=== PATIENT | female | born 1960 | race Two or more races ===

== ENCOUNTER 2018-08-28 10:11 | Emergency (ER) | payer OTHER ==
--- NOTE | 2018-08-28 10:53 | EDPHY ---
General Time Seen by Provider: 08/28/18 10:44 Narrative: CHIEF COMPLAINT: Flank pain HISTORY OF PRESENT ILLNESS: Patient presents by private vehicle with complaints of left flank pain. This started history day at 10:00 a.m. Suddenly. It has been constant duration. Rated as moderate to severe. No position of comfort. Nausea but no vomiting. She has no vaginal bleeding, discharge or pain. She has no dysuria. She does have urinary frequency. No fever. No right-sided abdominal pain. Pain does radiate down to the left side of the abdomen and groin at times. She has no trauma or injury. No previous abdominal surgeries. No other associated complaints or modifying factors. HPI obtained using the hospital's certified Gambian sign language instructor at bedside in patient's room. REVIEW OF SYSTEMS: 10 systems were reviewed and negative with the exception of the elements mentioned in the history of present illness. PCP: [facility] SPECIALISTS: None PAST MEDICAL HISTORY: Uncomplicated PAST SURGICAL HISTORY: No abdominal surgical history SOCIAL HISTORY: Nonsmoker. Lives independently with her child. FAMILY HISTORY: Noncontributory EXAMINATION: General Appearance: Alert, no distress. Well appearing. Conversing in complete sentences Head: normocephalic, atraumatic Eyes: Pupils equal and round, no conjunctival pallor or injection ENT, Mouth: Mucous membranes moist Neck: Normal inspection, supple, non-tender Respiratory: Lungs are clear to auscultation Cardiovascular: Regular rate and rhythm Gastrointestinal: Abdomen is soft and nondistended. Bowel sounds present all 4 quadrants. No tympany or rigidity. No guarding. Left CVA tenderness. Left- sided abdominal tenderness. Back: non-tender, no bony abnormalities Neurological: A&O, nonfocal, normal gait Skin: Warm and dry, no rash Extremities: Nontender, no pedal edema Psychiatric: Mood and affect normal DIFFERENTIAL DIAGNOSES: Including but not limited to renal colic, ureteral colic, pyelonephritis, hydronephrosis, colitis, diverticulitis MDM: 10:45 a.m. Acute left flank pain radiating to the left groin abdomen. History examination suggest renal colic. She has no right-sided tenderness. No guarding. No tympany rigidity. Vital signs are within normal limits. No SIRS criteria. No vomiting but she is nauseated. She has no position of comfort. She does have frequent urination. I have ordered laboratory studies, IV will be placed. I have ordered IV fluid and pain medications. Urinalysis will be needed. I have also ordered CT scan abdomen pelvis to evaluate for stone. She is in no acute distress. 11:30 a.m. CBC unremarkable. Urinalysis pending. Notified by radiologist Dr. Allen. CT scan abdomen pelvis reveals pelvic abdomen involving the the anterior uterus or left ovary. Recommends pelvic ultrasound. I have re-evaluated the patient and informed her of this with the business analyst sales operations at bedside. She is feeling better. 12:57 p.m. Notified by radiologist Dr. Avilez. We discussed the ultrasound findings of the pelvis. Comparison made to 5 years ago. 1:10 p.m. Patient re-evaluated with railroad design consultant at bedside. She reports that she has not had any follow up on the initial cyst. She states she is not able to do so. Her pain is still rated at 3/10. Both she and her family are concerned about going home. I will discuss with motorized squad captain 1:20 p.m. Case discussed with Ob physician Dr. Zuleta. She will provide consultation in the emergency department. 2:40 p.m. Patient has been evaluated by Dr. Zuleta. She will discuss options with help of the Gambian sign language instructor. 3:[address] Zuleta has evaluated the patient. She at 1st plan for surgical intervention, but does not feel this is emergent. Due to her use of aspirin she feels she will be best suited in several days after discontinuing the aspirin. She has ordered a CA-wanting high. She will follow up on this in her office. She plans for surgical intervention later this week. She has discussed multiple options with the patient using the Gambian sign language instructor at bedside, including admission versus discharge home. The patient's pain is tolerable and she would like to go home. She will provided short course of pain medication. We discussed strict ED precautions for worsening pain, vomiting, vaginal pain or pelvic pain. I have answered all her questions. She says that she has had all of her questions as by Dr. Zuleta and would like to go home. Please see Dr. Zuleta note for further details. Discharged home stable condition SUPERVISION: Patient was independently examined, but I discussed the case with my secondary supervising physician Dr. Luther CONSULTATION: OB Gyne, Dr. Elaine Zuleta - History Smoking Status: Never smoked - Objective Vital Signs: Initial Vital Signs Temperature (C) 97.9 F 08/28/18 10:12 Heart Rate 59 L 08/28/18 10:12 Respiratory Rate 18 08/28/18 10:12 Blood Pressure 156/60 H 08/28/18 10:12 O2 Sat (%) 96 08/28/18 10:12 O2 Delivery Mode Room Air O2 (L/minute) 2 Allergies/Adverse Reactions: No Known Allergies Allergy (Unverified 11/28/15 19:54) Home Medications: Medication Instructions Recorded oxyCODONE IR [Oxycodone Ir (*)] 5 - 10 mg PO Q6 PRN #15 tab 08/28/18 Laboratory Results: Laboratory Results 08/28/18 10:50 08/28/18 10:50 Medications Given: Discontinued Medications Sodium Chloride (Ns) 1,000 mls @ 0 mls/hr IV EDNOW ONE; Wide Open PRN Reason: Protocol Stop: 08/28/18 10:44 Last Admin: 08/28/18 10:57 Dose: 1,000 mls Morphine Sulfate (Morphine) 4 mg IVP EDNOW ONE Stop: 08/28/18 10:44 Last Admin: 08/28/18 10:56 Dose: 4 mg Morphine Sulfate (Morphine) 4 mg IVP EDNOW ONE Stop: 08/28/18 14:08 Last Admin: 08/28/18 14:12 Dose: 4 mg Ondansetron HCl (Zofran) 4 mg IVP EDNOW ONE Stop: 08/28/18 10:44 Last Admin: 08/28/18 10:57 Dose: 4 mg Departure - Departure Disposition: Home, Routine, Self-Care Clinical Impression: Abdominal pain, Pelvic pain in female, Cyst of ovary, left Condition: Good Instructions: Ovarian Cyst (ED) Additional Instructions: 1. Pain medication as prescribed as needed 2. Avoid ibuprofen, aspirin or Aleve. you may take Tylenol 500-650 mg every 6- 8 hours as needed. 3. Follow up with Dr. Zuleta as discussed. You will need to call her office for an appointment 4. ED precautions for worsening pain, fever, intolerable pain 1. Medicamento para el dolor charity se le receto charity sea necesario. 2. Evite ibuprofen, aspirina o Alive. Usted puede marco a Tylenol 500-650 mg cada 6-8 horas charity sea necesario. 3. Seguimiento con la Dra. Zuleta charity se discutio. Usted necesitara llamar a rodriguez oficina para justine shawn. 4. Precauciones del departamento de emergencias si el dolor empeora, fiebre, intolerancia al dolor. Referrals: Elaine Zuleta MD [Medical Doctor] - As per Instructions Physician,Emergency Dept, [Medical Doctor] - As per Instructions Stand Alone Forms: Work Excuse Prescriptions: oxyCODONE IR [Oxycodone Ir (*)] 5 - 10 mg PO Q6 PRN #15 tab PRN Reason: Pain Print Language: Gambian
[2018-08-28] MEDS: ONDANSETRON 4 MG/2 ML VIAL IVP ONE (10:57)
[2018-08-28] MEDS: NS 1,000 ML IV ONE (10:57)
[2018-08-28 11:20] LABS: PLATELET COUNT 251 10^3/uL (150-400)
[2018-08-28] MEDS ORDERED: oxyCODONE IR 5 MG TAB PO PRN (15:17)
--- NOTE | 2018-08-28 15:29 | PDCONSULT ---
Heavy Equipment Field Mechanic Note: Visual Display Associate Consult from KRISTY Benitez, in ED. Yrn Hendricksjapanese interpreter in attendance. 58 came to the ED with LLQ pain which started yesterday, and became more severe today. Pain is in her low back and radiates into her low abdomen. NO change in bowel or bladder habits. No fevers. No vomiting, no diarrhea. Sexually active, monogamous with boyfriend of 2 years. NO new partners. Took 2 ASA yesterday and again this morning to try to relieve the pain. Menopausal 6 years ago. 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 No eval for that. Had a pelvic ultrasound here at [facility] 2007, 4 cm simple L ov cyst seen ROS: 10 points, all neg except as above. 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 Temp Pulse Resp BP Pulse Ox 36.6 C 58 L 18 121/66 H 98 08/28/18 10:12 08/28/18 14:17 08/28/18 14:17 08/28/18 14:17 08/28/18 14:17 WBC 7.28 10^3/uL (3.80-9.50) 08/28/18 10:50 RBC 5.27 10^6/uL (4.18-5.33) 08/28/18 10:50 Hgb 15.7 g/dL (12.6-16.3) 08/28/18 10:50 Hct 45.9 % (38.0-47.0) 08/28/18 10:50 MCV 87.1 fL (81.5-99.8) 08/28/18 10:50 MCH 29.8 pg (27.9-34.1) 08/28/18 10:50 MCHC 34.2 g/dL (32.4-36.7) 08/28/18 10:50 RDW 12.8 % (11.5-15.2) 08/28/18 10:50 Plt Count 251 10^3/uL (150-400) 08/28/18 10:50 MPV 11.4 fL (8.7-11.7) 08/28/18 10:50 Neut % (Auto) 74.0 % (39.3-74.2) 08/28/18 10:50 Lymph % (Auto) 19.9 % (15.0-45.0) 08/28/18 10:50 [place] % (Auto) 4.8 % (4.5-13.0) 08/28/18 10:50 Eos % (Auto) 0.3 % (0.6-7.6) L 08/28/18 10:50 Baso % (Auto) 0.7 % (0.3-1.7) 08/28/18 10:50 Nucleat RBC Rel Count 0.0 % (0.0-0.2) 08/28/18 10:50 Absolute Neuts (auto) 5.39 10^3/uL (1.70-6.50) 08/28/18 10:50 Absolute Lymphs (auto) 1.45 10^3/uL (1.00-3.00) 08/28/18 10:50 Absolute Monos (auto) 0.35 10^3/uL (0.30-0.80) 08/28/18 10:50 Absolute Eos (auto) 0.02 10^3/uL (0.03-0.40) L 08/28/18 10:50 Absolute Basos (auto) 0.05 10^3/uL (0.02-0.10) 08/28/18 10:50 Absolute Nucleated RBC 0.00 10^3/uL (0-0.01) 08/28/18 10:50 Immature Gran % 0.3 % (0.0-1.1) 08/28/18 10:50 Immature Gran # 0.02 10^3/uL (0.00-0.10) 08/28/18 10:50 Sodium 139 mEq/L (135-145) 08/28/18 10:50 Potassium 4.0 mEq/L (3.3-5.0) 08/28/18 10:50 Chloride 103 mEq/L (97-110) 08/28/18 10:50 Carbon Dioxide 26 mEq/l (22-31) 08/28/18 10:50 Anion Gap 10 mEq/L (6-14) 08/28/18 10:50 BUN 12 mg/dL (7-23) 08/28/18 10:50 Creatinine 0.6 mg/dL (0.6-1.0) 08/28/18 10:50 Estimated GFR > 60 08/28/18 10:50 Glucose 95 mg/dL (70-100) 08/28/18 10:50 Calcium 9.8 mg/dL (8.5-10.4) 08/28/18 10:50 Total Bilirubin 0.6 mg/dL (0.1-1.4) 08/28/18 10:50 Conjugated Bilirubin 0.1 mg/dL (0.0-0.5) 08/28/18 10:50 Unconjugated Bilirubin 0.5 mg/dL (0.0-1.1) 08/28/18 10:50 AST 25 IU/L (14-46) 08/28/18 10:50 ALT 31 IU/L (9-52) 08/28/18 10:50 Alkaline Phosphatase 135 IU/L (38-126) H 08/28/18 10:50 Total Protein 7.8 g/dL (6.3-8.2) 08/28/18 10:50 Albumin 4.4 g/dL (3.5-5.0) 08/28/18 10:50 Lipase 166 IU/L (23-300) 08/28/18 10:50 Urine Color YELLOW 08/28/18 10:50 Urine Appearance CLEAR 08/28/18 10:50 Urine pH 5.0 (5.0-7.5) 08/28/18 10:50 Ur Specific [place] 1.018 (1.002-1.030) 08/28/18 10:50 Urine Protein NEGATIVE (NEGATIVE) 08/28/18 10:50 Urine Ketones NEGATIVE (NEGATIVE) 08/28/18 10:50 Urine Blood 1+ (NEGATIVE) H 08/28/18 10:50 Urine Nitrate NEGATIVE (NEGATIVE) 08/28/18 10:50 Urine Bilirubin NEGATIVE (NEGATIVE) 08/28/18 10:50 Urine Urobilinogen NEGATIVE EU (0.2-1.0) 08/28/18 10:50 Ur Leukocyte Esterase NEGATIVE (NEGATIVE) 08/28/18 10:50 Urine RBC 3-5 /hpf (0-3) H 08/28/18 10:50 Urine WBC 1-3 /hpf (0-3) 08/28/18 10:50 Ur Epithelial Cells NONE SEEN /lpf (NONE-1+) 08/28/18 10:50 Urine Mucus TRACE /lpf (NONE-1+) 08/28/18 10:50 Urine Glucose NEGATIVE (NEGATIVE) 08/28/18 10:50 Did just received morphine through IV for pain control. Gen - pleasant female, NAD, with 2 daughters with her. neuroposych - AO x 3 HEENT - grossly wnl, PERRLA, EOMI skin - warm, dry CV - RRR chest - CTAB abd - soft, mild tenderness in LLQ, no rebound, no guarding back - no CVAT ext - no edema, normal strength bimanual - no adnexal masses on R, mildly tender mass anterior to uterus on R. Uterus mobile. No cervical motion tenderness. US and CT scans reviewed: from 2007 - L ov 4 cm simple cyst. Endometrial stripe 1.6cm from today - L ovarian or paraovarian cyst 9 cm, appears simple though may have "some debris" No free fluid. 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 Options discussed: 1) Observe and repeat US in 6-8 weeks to check for spontaneous resolution while managing pain 2) Surgery today or delayed B/R/A of options discussed. Mutually agreed to draw Ca125 - ovarian cancer tumor marker, and pt to follow up with me in office in one week, at 3:15pm. Will repeat ultrasound then and Ca125 results will be back. Ovarian torsion precautions reviewed. No NSAIDs or herbal products until then. If normal Ca125 - will plan surgical removal. If Ca125 elevated, will need referral to gas meter repair supervisor onc. Rx for oxycodone and Tylenol prn for pain. Elaine Zuleta MD, [facility]
[2018-08-28 16:06] VITALS: BP 120/75
== END 2018-08-28 16:05 | disposition home or self-care (01) ==
DX: N83.292 Other ovarian cyst, left side (principal); E86.9 Volume depletion, unspecified
CPT/HCPCS: 86304-90; 96374; J2270; J2405

== ENCOUNTER 2018-09-01 10:14 | Emergency (ER) | payer OTHER ==
[2018-09-01] MEDS ORDERED: HYDROmorphONE/DILAUDID 2 MG/ML INJ IVP ONE (11:26)
[2018-09-01] MEDS ORDERED: NS 500 ML IV ONE (11:26)
[2018-09-01] MEDS ORDERED: KETOROLAC 30 MG/1 ML SDV IVP ONE (11:26)
--- NOTE | 2018-09-01 11:37 | EDPHY ---
H & P Time Seen by Provider: 09/01/18 11:01 HPI/ROS: HPI Left-sided abdominal pain. History of ovarian cyst. 58-year-old female by private vehicle with her son. This patient was seen in our emergency department on August 28 with the same complaint. She was diagnosed with a 9 cm left-sided ovarian cyst thought to be a simple cyst. OBGYN, Dr. Elaine Zuleta, consulted on the patient. The patient has a follow-up appointment with Dr. Zuleta on Friday at 3:15 p.m. this week. She presents to the emergency department complaining of uncontrolled pain to her left abdomen and left flank area. She was prescribed oxycodone. She states however that she has only been taking 1 pill every 6-8 hours. She has not had a fever. She denies vaginal bleeding. No urinary complaints. ROS: Constitutional: No fever, no chills. No weakness. Eyes: No discharge. No changes in vision. ENT: No sore throat. No nasal congestion or rhinorrhea. Respiratory: No cough. No shortness of breath. Cardiac: No chest pain, no palpitations. Gastrointestinal: As above, no vomiting, no diarrhea. Genitourinary: No hematuria. No dysuria or increased frequency with urination. Musculoskeletal: As above. No neck pain. No myalgias or arthralgias. Skin: No rashes. Neurological: No headache. No focal weakness or altered sensation. Past medical history: She denies any significant past medical history other than noted above. Social history: Nonsmoker. Here with her son. No alcohol. Physical Exam: General Appearance: Alert, she appears uncomfortable but not in distress. This patient is responding to questions appropriately and in full sentences. This patient appears well-hydrated and well-nourished. Eyes: Pupils equal and round no pallor or injection. No lid edema, erythema or injection. Respiratory: There are no retractions, lungs are clear to auscultation with good air movement bilaterally. Cardiovascular: Regular rate and rhythm. No murmur. Gastrointestinal: Abdomen is soft with vague left-sided lower abdominal pain, no significant left CVA tenderness on palpation, no masses, bowel sounds normal. No focal tenderness at McBurney's point. No Maldonado sign. Neurological: Motor sensory function is grossly intact. Cranial nerves are normal. Gait is normal. Skin: Warm and dry, no rashes. Musculoskeletal: Neck is supple and nontender. Extremities are symmetrical. All joints range without pain or impingement. Psychiatric: No agitation. No depression. Database: EKG: Imaging: Pelvic ultrasound: Essentially unchanged from the prior study. No evidence of free fluid or other acute findings. Results were discussed with staff radiologist Dr. Jefe Allen. Procedures: Emergency department course: Triage vital signs reviewed and are normal. IV was placed. She was placed on a monitor. She was started on IV normal saline with 500 cc to be given over the next hour. She has a normal creatinine from August 28. No contraindications to NSAIDs. She will be given 30 mg of IV Toradol and 0.5 mg of IV hydromorphone. Pelvic ultrasound will be repeated to evaluate for any free fluid or other changes. 1:45 p.m., the patient was re-evaluated. She is resting comfortably at this time. Her pain is well controlled. Results of her emergency department workup discussed with her and her relative who is in the room and translates well. She feels comfortable going home and following up with her OBGYN on Friday as scheduled and noted above. I discussed narcotic pain medication dosing again with her. She understands the importance of her follow-up. Return to emergency department precautions reviewed with her. All of her questions were answered. She was discharged in good condition with her family member. Differential Diagnosis: The differential diagnosis on this patient includes but is not limited to left- sided ovarian cyst, uncontrolled pain. Ectopic , ureterolithiasis, pyelonephritis, diverticular unlikely. This represents a partial list of diagnoses considered. These considerations are based on history, physical exam , past history, reassessment and diagnostic testing. Smoking Status: Never smoked Constitutional: Initial Vital Signs Temperature (C) 36.7 C 09/01/18 10:26 Heart Rate 67 09/01/18 10:26 Respiratory Rate 17 09/01/18 10:26 Blood Pressure 122/93 H 09/01/18 10:26 O2 Sat (%) 98 09/01/18 10:26 O2 Delivery Mode Room Air Allergies/Adverse Reactions: No Known Allergies Allergy (Verified 09/01/18 10:26) Home Medications: Medication Instructions Recorded oxyCODONE IR [Oxycodone Ir (*)] 5 - 10 mg PO Q6 PRN #15 tab 08/28/18 Medical Decision Making - Diagnostics Imaging Results: Imaging Impressions Pelvic/Renal Ultrasound 09/01/18 11:27 Impression: 1. Large simple cystic structure along the anterior aspect of the uterus similar to the recent exam performed 4 days ago but has increased more remote study from April,. This could represent cystadenoma or possibly mesenteric cyst. The relatively slow growth since 2007 suggests that this has more of a benign etiology. 2. Incidental small uterine fibroids. Findings discussed with Adrianna Sprague MD at 13:00 hour, 09/01/2018. - Data Points Laboratory Results: Laboratory Results 09/01/18 11:30 09/01/18 11:30 09/01/18 09/01/18 09/01/18 12:55 11:30 11:30 WBC 8.15 10^3/uL 10^3/uL (3.80-9.50) RBC 5.29 10^6/uL 10^6/uL (4.18-5.33) Hgb 15.7 g/dL g/dL (12.6-16.3) Hct 44.9 % % (38.0-47.0) MCV 84.9 fL fL (81.5-99.8) MCH 29.7 pg pg (27.9-34.1) MCHC 35.0 g/dL g/dL (32.4-36.7) RDW 12.7 % % (11.5-15.2) Plt Count 250 10^3/uL 10^3/uL (150-400) MPV 11.2 fL fL (8.7-11.7) Neut % (Auto) 69.0 % % (39.3-74.2) Lymph % (Auto) 21.1 % % (15.0-45.0) [place] % (Auto) 7.7 % % (4.5-13.0) Eos % (Auto) 1.3 % % (0.6-7.6) Baso % (Auto) 0.7 % % (0.3-1.7) Nucleat RBC Rel Count 0.0 % % (0.0-0.2) Absolute Neuts (auto) 5.61 10^3/uL 10^3/uL (1.70-6.50) Absolute Lymphs (auto) 1.72 10^3/uL 10^3/uL (1.00-3.00) Absolute Monos (auto) 0.63 10^3/uL 10^3/uL (0.30-0.80) Absolute Eos (auto) 0.11 10^3/uL 10^3/uL (0.03-0.40) Absolute Basos (auto) 0.06 10^3/uL 10^3/uL (0.02-0.10) Absolute Nucleated RBC 0.00 10^3/uL 10^3/uL (0-0.01) Immature Gran % 0.2 % % (0.0-1.1) Immature Gran # 0.02 10^3/uL 10^3/uL (0.00-0.10) Sodium 139 mEq/L mEq/L (135-145) Potassium 4.1 mEq/L mEq/L (3.3-5.0) Chloride 105 mEq/L mEq/L (97-110) Carbon Dioxide 23 mEq/l mEq/l (22-31) Anion Gap 11 mEq/L mEq/L (6-14) BUN 9 mg/dL mg/dL (7-23) Creatinine 0.7 mg/dL mg/dL (0.6-1.0) Estimated GFR > 60 Glucose 94 mg/dL mg/dL (70-100) Calcium 10.0 mg/dL mg/dL (8.5-10.4) Urine Color PALE YELLOW Urine Appearance CLEAR Urine pH 8.0 H (5.0-7.5) Ur Specific [place] 1.005 (1.002-1.030) Urine Protein NEGATIVE (NEGATIVE) Urine Ketones NEGATIVE (NEGATIVE) Urine Blood NEGATIVE (NEGATIVE) Urine Nitrate NEGATIVE (NEGATIVE) Urine Bilirubin NEGATIVE (NEGATIVE) Urine Urobilinogen NEGATIVE EU EU (0.2-1.0) Ur Leukocyte Esterase NEGATIVE (NEGATIVE) Urine RBC NONE SEEN /hpf /hpf (0-3) Urine WBC 1-3 /hpf /hpf (0-3) Ur Epithelial Cells TRACE /lpf /lpf (NONE-1+) Urine Mucus TRACE /lpf /lpf (NONE-1+) Urine Glucose NEGATIVE (NEGATIVE) Medications Given: Discontinued Medications Hydromorphone HCl (Dilaudid) 0.5 mg IVP EDNOW ONE Stop: 09/01/18 11:27 Last Admin: 09/01/18 11:35 Dose: 0.5 mg Sodium Chloride (Ns) 500 mls @ 0 mls/hr IV EDNOW ONE; Wide Open PRN Reason: Protocol Stop: 09/01/18 11:27 Last Admin: 09/01/18 11:35 Dose: 500 mls Ketorolac Tromethamine (Toradol) 30 mg IVP EDNOW ONE Stop: 09/01/18 11:27 Last Admin: 09/01/18 11:36 Dose: 30 mg Departure - Departure Disposition: Home, Routine, Self-Care Clinical Impression: Ovarian cyst Condition: Good Instructions: Ovarian Cyst (ED), Abdominal Pain (ED) Additional Instructions: Read and follow provided instructions. Follow-up with your OBGYN as scheduled this Friday at 3:15 p.m.. Take medication as prescribed for pain. Narcotic pain medication pills: You can take 1-2 pills every 4-6 hours as needed for pain. Do not drive while taking this medication. You can start taking ibuprofen tomorrow: Ibuprofen dosin mg every 6 hours with meals for the next 3 days only. Take only as needed for pain. Return to the emergency department for worsening pain, fever or other serious concerns. Referrals: Elaine Zuleta MD [Medical Doctor] - As per Instructions
[2018-09-01 11:40] LABS: PLATELET COUNT 250 10^3/uL (150-400)
[2018-09-01 14:03] VITALS: BP 147/91
== END 2018-09-01 14:08 | disposition home or self-care (01) ==
DX: N83.202 Unspecified ovarian cyst, left side (principal); D25.9 Leiomyoma of uterus, unspecified; E86.9 Volume depletion, unspecified
CPT/HCPCS: 96374; J1170; J1885

== ENCOUNTER 2018-11-18 05:28 | Day surgery (SDC) | payer OTHER ==
--- NOTE | 2018-11-16 14:30 | PDGENHP ---
History and Physical - Chief Complaint persistent symptomatic large ovarian cyst. - History of Present Illness Pt seen in ED end of August with pelvic pain, and found to have 9 cm simple cyst ant to uterus, presumed to be ovarian in origin. Symptomatic still with regards to urinary frequency and pelvic pressure, but no longer has pain. Not currently sexually active - no current partner. Broke up with 2 yr boyfriend in the past 2 months. Shani Sparrow, production supervisor off shift in attendance. 58 , NO change in bowel or bladder habits. No fevers. No vomiting, no diarrhea. Menopausal 6 years ago. 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 No eval for that. Had a pelvic ultrasound here at [facility] 2007, 4 cm simple L ov cyst seen ROS: 10 points, all neg except as above. 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 No cervical motion tenderness. US and CT scans reviewed: from 2007 - L ov 4 cm simple cyst. Endometrial stripe 1.6cm from ED visit 08/2018- L ovarian or paraovarian cyst 9 cm, appears simple though may have "some debris" No free fluid. 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 Written informed consent obtained with district traffic chief. Rx for #20 of 5mg oxycodone given. Elaine Zuleta MD, FACOG [facility] History Information - Allergies/Home Medication List Allergies/Adverse Reactions: No Known Allergies Allergy (Verified 11/06/18 16:13) Home Medications: Multivitamin 11/06/18 [Last Taken Unknown] oxyCODONE IR [Oxycodone Ir (*)] 11/06/18 [Last Taken Unknown] I have personally reviewed and updated: family history, medical history, social history, surgical history - Social History Smoking Status: Former smoker Review of Systems Review of Systems: ROS: 10pt was reviewed & negative except for what was stated in HPI & below Physical Exam Physical Exam:
[2018-11-18] MEDS ORDERED: LR 1,000 ML IV ONE (05:45)
[2018-11-18] MEDS ORDERED: LIDOCAINE 1% 2 ML INJ ID PRN (05:45)
[2018-11-18] MEDS ORDERED: BUPIVACAINE 0.25% 30 ML SDV ONE ×2 (06:56→06:57)
[2018-11-18] MEDS ORDERED: SILVER NITRATE APPLICATOR 1 APPL TP ONE (06:56)
[2018-11-18] MEDS ORDERED: EPINEPHrine 1 MG/ML INJ ONE (06:57)
--- NOTE | 2018-11-18 07:04 | PDANEPAE ---
ANE Past Medical History - Cardiovascular History Hx Hypertension: No Hx Arrhythmias: No Hx Chest Pain: No Hx Coronary Artery / Peripheral Vascular Disease: No Hx CHF / Valvular Disease: No Hx Palpitations: No - Pulmonary History Hx COPD: No Hx Asthma/Reactive Airway Disease: No Hx Recent Upper Respiratory Infection: No Hx Oxygen in Use at Home: No Hx Sleep Apnea: No Sleep Apnea Screening Result - Last Documented: Negative Pulmonary History Comment: bronchitis and pneumonia - Neurologic History Hx Cerebrovascular Accident: No Hx Seizures: No Hx Dementia: No - Endocrine History Hx Diabetes: No - Renal History Hx Renal Disorders: No - Liver History Hx Hepatic Disorders: No - Neurological & Psychiatric Hx Hx Neurological and Psychiatric Disorders: No - Cancer History Hx Cancer: No - Congenital Disorder History Hx Congenital Disorders: No - GI History Hx Gastrointestinal Disorders: No - Other Health History Other Health History: dentures upper and lower - Chronic Pain History Chronic Pain: No - Surgical History Prior Surgeries: 03/20 scope ANE Review of Systems Review of Systems: - Exercise capacity METS (RN): 4 METS ANE Patient History - Allergies Allergies/Adverse Reactions: No Known Allergies Allergy (Verified 11/06/18 16:13) - Home Medications Home Medications: Multivitamin 11/06/18 [Last Taken 10/29/18] oxyCODONE IR [Oxycodone Ir (*)] 11/06/18 [Last Taken 10/18/18] - NPO status NPO Since - Liquids (Date): 11/17/18 NPO Since - Liquids (Time): 20:00 NPO Since - Solids (Date): 11/17/18 NPO Since - Solids (Time): 20:00 - Smoking Hx Smoking Status: Former smoker - Family Anes Hx Family Hx Anesthesia Complications: none ANE Labs/Vital Signs - Vital Signs Blood Pressure: 120/80 Heart Rate: 52 Respiratory Rate: 18 O2 Sat (%): 95 Height: 157.48 cm Weight: 65.771 kg ANE Physical Exam - Airway Mallampati Score: Class 2 - ASA Status ASA Status: II ANE Anesthesia Plan Anesthesia Plan: general endotracheal anesthesia
[2018-11-18] MEDS ORDERED: MIDAZOLAM 2 MG/2 ML VIAL ONE (07:07)
[2018-11-18] MEDS ORDERED: PROPOFOL 200 MG/20 ML VIAL ONE (07:10)
[2018-11-18] MEDS ORDERED: ONDANSETRON 4 MG/2 ML VIAL ONE (07:10)
[2018-11-18] MEDS ORDERED: ROCURONIUM 50 MG/5 ML VIAL ONE (07:10)
[2018-11-18] MEDS ORDERED: fentaNYL 100 MCG/2 ML INJ ONE (07:10)
[2018-11-18] MEDS ORDERED: METOCLOPRAMIDE 10 MG/2 ML VIAL ONE (07:10)
--- NOTE | 2018-11-18 07:17 | PDHPUP ---
History & Physical Update H&P update statement: This history and physical update is based on an assessment of the patient which was completed after admission or registration (within 24 hours), but prior to the surgery/procedure. H&P update: H&P reviewed & patient examined, no change in patient's condition since H&P completed (embedded developer present)
[2018-11-18] MEDS ORDERED: PHENYLEPHRINE HCL 100 MCG/ML SYR ONE (07:42)
[2018-11-18] MEDS ORDERED: SUGAMMADEX SODIUM 200 MG/2 ML VIAL IVP ONE (08:31)
[2018-11-18] MEDS ORDERED: PROMETHAZINE HCL 25 MG/ML INJ IVP PRN (08:52)
[2018-11-18] MEDS ORDERED: MEPERIDINE 25 MG/0.5 ML AMP IVP PRN (08:52)
[2018-11-18] MEDS ORDERED: NALOXONE HCL 0.4 MG/ML INJ IVP PRN (08:52)
[2018-11-18] MEDS ORDERED: LR 500 ML IV PRN (08:52)
[2018-11-18] MEDS ORDERED: fentaNYL 100 MCG/2 ML INJ IVP PRN (08:52)
[2018-11-18] MEDS ORDERED: HYDROCODONE/APAP 5/325 TAB PO PRN (08:52)
--- NOTE | 2018-11-18 08:54 | POSTANESTH ---
Post Anesthetic Evaluation Cardiovascular Status: Normal, Stable Respiratory Status: Normal, Stable Level of Consciousness/Mental Status: Can Participate in Eval Pain Control: Adequate, Prn Tx Ordered Nausea/Vomiting Control: Adequate, Prn Tx Ordered Complications Possibly Related to Anesthesia: None Noted
--- NOTE | 2018-11-18 09:00 | POSTOPPROG ---
Post Op Note Date of Operation: 11/18/18 (dictated [id number]) Surgeon: Elaine Zuleta Shank Cementer Hand: Rubio Myers Anesthesiologist: Clinton Ponce Anesthesia: GET(General Endotracheal) Pre-op Diagnosis: left ovarian cyst, desired onco-reduction Post-op Diagnosis: same Indication: 58 year old with a persistent large simple left ovarian cyst, symptomatic Procedure: laparoscopic left ovarian cystectomy and bilateral salpingectomy Findings: normal appearing uterus and ovaries bilaterally, large left simple ov cys Inf/Abcess present in the surg proc area at time of surgery?: No EBL: Minimal Total fluids administered: 900 Complications: none Specimen(s): left adnexal cyst and tube, right tube in 2 segments (hx of prior tubal ligation ).
[2018-11-18 10:07] VITALS: BP 112/75
--- NOTE | 2018-11-18 10:51 | GOP ---
DATE OF OPERATION: 11/18/2018 SURGEON: Elaine Zuleta MD GLUE DRIER OPERATOR: Rubio Myers MD ANESTHESIA: General endotracheal. ANESTHESIOLOGIST: Clinton Ponce MD PREOPERATIVE DIAGNOSIS: Left adnexal cyst and desired onco reduction. POSTOPERATIVE DIAGNOSIS: Left adnexal cyst and desired onco reduction. PROCEDURE PERFORMED: FINDINGS: Normal-appearing uterus and ovaries bilaterally. Large left simple adnexal cyst directly adjacent to the ovary. Unclear if it is truly ovarian in origin. Smooth liver edge and normal-appearing appendix SPECIMENS: Left adnexal cyst and tube and then right tube in 2 segments as the patient has a history of a prior tubal ligation. ESTIMATED BLOOD LOSS: 20 mL. INDICATIONS: 58-year-old with a persistent large simple left adnexal cyst causing symptoms initially 2 months ago of pain and currently of urinary pressure and frequency. The cyst was first diagnosed 09/2018. It was persistent. An ultrasound done in the office at the preoperative visit showed a persistent simple 7.5 mm ovarian cyst. CA-125 within the past 2 months or so was less than 5. DESCRIPTION OF PROCEDURE: In the preoperative area with the assistance of a real estate coordinator, written informed consent was reviewed with the patient and all questions were again answered. Written informed consent was initially obtained in the office, at the pre-operative visit, 2 days ago, witih the assistance of real estate coordinator Shani Sparrow. The patient was taken the operating room and placed in the dorsal supine position. When general anesthesia was deemed adequate, she was placed in a modified dorsal lithotomy position using the Yellofin stirrups. Her abdomen and vagina were sterilely prepared and draped in the standard fashion. A speculum was inserted in the vagina. A tenaculum was placed on the anterior lip of the cervix. An acorn cannula was inserted in the cervix and affixed to the tenaculum. The speculum was removed. Gloves were changed and attention was turned to the abdomen. The legs were lowered. 0.25% Marcaine with epinephrine was infiltrated prior to making each incision for the trocar sites. A small incision was made beneath the umbilicus over the area of the previous incision. This was taken down sharply to the fascia. The abdomen was elevated and a 5 mm Visiport trocar was inserted under direct visualization. The patient was placed in Trendelenburg. Right and left lower quadrant 5 mm ports were then placed under direct visualization in a similar fashion. Graspers were used to elevate the ovary and the cyst with the above findings. Pelvic washings were obtained. The distal right tube was elevated and excised using the LigaSure. Attention was then turned to the cyst. The cyst was elevated and the base of the cyst was minimally adhered to the bowel. These filmy adhesions were taken down sharply. The LigaSure was then used to excise the cyst away from the base of the ovary. In order to assist with visualization, a needle was inserted into the cyst and the cyst was decompressed removing about 300 mL of clear fluid. The cyst was then able to be elevated to put on tension from the ovary and the LigaSure was used to excise the cyst and tube, which was plastered to the cyst in its entirety away from the remaining ovary. The cyst and tube were then able to be removed in total through the right lower quadrant skin incision. The proximal right tube was then elevated and excised using the LigaSure across the cornua and along the mesosalpinx. Copious irrigation and suction were performed and all operative sites appeared hemostatic. The abdomen was desufflated and all operative sites still appeared hemostatic with decreased intraabdominal pressure. The trocars were removed under direct visualization. The skin was closed with 4-0 Monocryl and Dermabond. The instruments were removed from the vagina and excellent hemostasis of the cervix was noted. Sponge, lap, and needle counts were correct x2. Patient was extubated in the operating room and taken to the recovery room in stable condition. TOTAL FLUIDS ADMINISTERED: 900 mL of lactated Ringer's. COMPLICATIONS: None. /[id number]/MODL MTDD
== END 2018-11-18 10:10 | disposition home or self-care (01) ==
LOC: FSGY 05:28
PROVIDERS: ATTEND Hospitalist
DX: D27.1 Benign neoplasm of left ovary (principal); Z40.03 Encounter for prophylactic removal of fallopian tube(s)
CPT/HCPCS: J0171; J2250; J2370; J2405; J2704; J2765; J3010